=== PATIENT | male | born 1965 | race Caucasian/White ===

== ENCOUNTER 2018-04-20 14:22 | Emergency (ER) | payer SELFPAY ==
[2018-04-20] MEDS: IBUPROFEN 600 MG TAB PO (15:31)
[2018-04-20] MEDS: HYDROCODONE/APAP (5/325) TAB PO (15:32)
== END 2018-04-20 16:56 | disposition home or self-care (01) ==
LOC: FTE 14:22
DX: S52.502A Unspecified fracture of the lower end of left radius, initial encounter for closed fracture (principal); W18.39XA Other fall on same level, initial encounter; Y92.9 Unspecified place or not applicable
CPT/HCPCS: 29125; 73110-LT; 73130-LT; 99283-25